=== PATIENT | male | born 1975 | race Caucasian/White ===

== ENCOUNTER → 2021-02-28 | Emergency (ER) | payer OTHER ==
[~2021-02-28] VITALS: Ht 188 cm; Wt 99.8 kg
[~2021-02-28] MED LIST: BENICAR5 MG
== END | disposition home or self-care (01) ==
LOC: ER 16:51
DX: H20.011 Primary iridocyclitis, right eye (principal); H57.11 Ocular pain, right eye

== ENCOUNTER 2024-08-23 15:06 | Emergency (ER) | payer OTHER ==
[~2024-08-23] VITALS: Ht 188 cm; Wt 111.1 kg
[2024-08-23] MEDS ORDERED: MEDROL4 MG PO (15:38)
[2024-08-23] MEDS ORDERED: TRAM1TAB98 (15:39)
[2024-08-23] MEDS ORDERED: ORPHENADRINE CITRATE 30 MG/ML AMPUL IM ONE (17:00)
[2024-08-23] MEDS ORDERED: KETOROLAC TROMETHAMINE 60 MG VIAL IM ONE (17:00)
== END 2024-08-23 17:24 | disposition home or self-care (01) ==
LOC: ER 15:17
DX: M54.50 Low back pain, unspecified (principal)